=== PATIENT | male | born 1950 | race Caucasian/White ===

== ENCOUNTER 2017-09-19 11:00 | Outpatient (CLI) | payer OTHER ==
[~2017-09-19 11:00] MED LIST: NEXIUM10 MG PO; PRAVASTATIN SOD40 MG PO; VASOTEC5 MG
== END 2017-09-19 11:06 | disposition home or self-care (01) ==
LOC: LAB 11:00
DX: D64.9 Anemia, unspecified (principal); E78.2 Mixed hyperlipidemia; E03.0 Congenital hypothyroidism with diffuse goiter; N39.0 Urinary tract infection, site not specified; R73.09 Other abnormal glucose; K92.1 Melena; N40.0 Benign prostatic hyperplasia without lower urinary tract symptoms

== ENCOUNTER → 2018-03-10 08:58 | Outpatient (CLI) | payer OTHER | END | disposition home or self-care (01) | LOC: LAB 08:58 | DX: D64.89 Other specified anemias (principal); E78.2 Mixed hyperlipidemia ==

== ENCOUNTER 2018-03-17 08:18 | Outpatient (CLI) | payer OTHER | END 2018-03-17 08:58 | disposition home or self-care (01) | LOC: LAB 08:18 | DX: E78.2 Mixed hyperlipidemia (principal); D64.89 Other specified anemias ==

== ENCOUNTER 2018-04-14 08:29 | Outpatient (CLI) | payer OTHER | END 2018-04-14 08:34 | disposition home or self-care (01) | LOC: LAB 08:29 | DX: C61 Malignant neoplasm of prostate (principal) ==

== ENCOUNTER 2018-04-17 16:08 | Outpatient (CLI) | payer OTHER | END 2018-04-17 16:24 | disposition home or self-care (01) | LOC: LAB 16:08 | DX: R10.9 Unspecified abdominal pain (principal) ==

== ENCOUNTER 2018-04-23 09:37 | Outpatient (CLI) | payer OTHER | END 2018-04-23 17:21 | disposition home or self-care (01) | LOC: TOM 09:37 | DX: R10.9 Unspecified abdominal pain (principal) | CPT/HCPCS: 74178; Q9965 ==

== ENCOUNTER 2018-07-02 14:24 | Outpatient (CLI) | payer OTHER | END 2018-07-02 14:26 | disposition home or self-care (01) | LOC: SONOGRAMA 14:24 → MAMO-SONO 14:45 | DX: I11.9 Hypertensive heart disease without heart failure (principal); I86.1 Scrotal varices ==

== ENCOUNTER 2019-02-02 09:24 | Outpatient (CLI) | payer OTHER | END 2019-02-02 11:22 | disposition home or self-care (01) | LOC: LAB 09:24 | DX: D64.89 Other specified anemias (principal); E11.9 Type 2 diabetes mellitus without complications; E78.2 Mixed hyperlipidemia; N39.0 Urinary tract infection, site not specified; Z12.11 Encounter for screening for malignant neoplasm of colon ==

== ENCOUNTER 2019-02-05 11:19 | Outpatient (CLI) | payer OTHER | END 2019-02-05 15:00 | disposition home or self-care (01) | LOC: LAB 11:19 | DX: D64.89 Other specified anemias (principal); E11.9 Type 2 diabetes mellitus without complications; E78.2 Mixed hyperlipidemia; N39.0 Urinary tract infection, site not specified; Z12.11 Encounter for screening for malignant neoplasm of colon ==

== ENCOUNTER 2019-06-06 08:00 | Outpatient (CLI) | payer OTHER | END 2019-06-06 15:00 | disposition home or self-care (01) | LOC: LAB 08:00 | DX: H25.12 Age-related nuclear cataract, left eye (principal); Z01.811 Encounter for preprocedural respiratory examination; D68.8 Other specified coagulation defects; E78.49 Other hyperlipidemia ==

== ENCOUNTER 2020-02-04 12:46 | Outpatient (CLI) | payer OTHER | END 2020-02-04 12:52 | disposition home or self-care (01) | LOC: LAB 12:46 | PROVIDERS: ATTEND Ophthalmology | DX: Z01.811 Encounter for preprocedural respiratory examination (principal); H25.12 Age-related nuclear cataract, left eye; D68.8 Other specified coagulation defects; E78.49 Other hyperlipidemia ==

== ENCOUNTER 2020-06-03 11:00 | Outpatient (CLI) | payer OTHER | END 2020-06-03 16:39 | disposition home or self-care (01) | LOC: TOM 11:00 | PROVIDERS: ATTEND Internal Medicine | DX: G93.89 Other specified disorders of brain (principal) ==

== ENCOUNTER 2020-06-09 08:09 | Outpatient (CLI) | payer OTHER | END 2020-06-09 08:12 | disposition home or self-care (01) | LOC: NUCLEAR 08:09 | PROVIDERS: ATTEND Internal Medicine | DX: I11.9 Hypertensive heart disease without heart failure (principal); I25.10 Atherosclerotic heart disease of native coronary artery without angina pectoris; G45.1 Carotid artery syndrome (hemispheric) ==

== ENCOUNTER 2021-08-31 13:45 | Outpatient (CLI) | payer OTHER | END 2021-08-31 13:56 | disposition home or self-care (01) | LOC: RAD 13:45 | PROVIDERS: ATTEND Internal Medicine | DX: J01.90 Acute sinusitis, unspecified (principal) ==

== ENCOUNTER 2023-04-19 11:04 | Outpatient (CLI) | payer OTHER | END 2023-04-19 11:05 | disposition home or self-care (01) | LOC: NUCLEAR 11:04 | PROVIDERS: ATTEND Internal Medicine | DX: I87.2 Venous insufficiency (chronic) (peripheral) (principal); I70.213 Atherosclerosis of native arteries of extremities with intermittent claudication, bilateral legs; I70.223 Atherosclerosis of native arteries of extremities with rest pain, bilateral legs ==

== ENCOUNTER 2023-04-20 11:15 | Outpatient (CLI) | payer OTHER | END 2023-04-20 11:16 | disposition home or self-care (01) | LOC: NUCLEAR 11:15 | PROVIDERS: ATTEND Internal Medicine | DX: I70.213 Atherosclerosis of native arteries of extremities with intermittent claudication, bilateral legs (principal) ==

== ENCOUNTER 2023-05-08 08:39 | Outpatient (CLI) | payer OTHER | END 2023-05-08 09:02 | disposition home or self-care (01) | LOC: SONOGRAMA 08:39 | PROVIDERS: ATTEND Urology | DX: I86.1 Scrotal varices (principal) ==